=== PATIENT | female | born 1975 ===

== ENCOUNTER 2021-04-06 17:39 | Outpatient (CLI) | payer BC ==
--- NOTE | 2021-04-14 09:15 | XRAY Report ---
PROCEDURE: Shoulder 2 View LT INDICATIONS: L SHOULDER PX TECHNIQUE: 2 views of the shoulder were acquired. COMPARISON: None. FINDINGS: Bones: No fractures or dislocations. No suspicious bony lesions. Visualized ribs appear intact. M ild joint space narrowing and periarticular osteophyte formation at the acromioclavicular and glenohu meral joints. Soft tissues: No suspicious soft tissue calcifications. IMPRESSION: Osteoarthritis. No acute fracture. No osseous lesion. If symptoms and/or clinical suspic ion for pathology continue, further assessment with repeat plain films, or advanced imaging (e.g., CT , MRI, or bone scan) is recommended for further assessment. Reviewed by: Shereen Pleitez MD on 04/14/2021 9:14 AM PDT Approved by: Shereen Pleitez MD on 04/14/2021 9:14 AM PDT Station ID: [id number]
== END 2021-04-06 23:59 ==
LOC: DI.N 17:39
PROVIDERS: ATTEND Nurse Practitioner
DX: M25.512 Pain in left shoulder (principal); M19.012 Primary osteoarthritis, left shoulder